=== PATIENT | male | born 1970 | race Caucasian/White ===

== ENCOUNTER 2024-06-28 17:47 | Emergency (ER) | payer BC ==
[~2024-06-28] VITALS: Ht 180.3 cm; Wt 131.5 kg
[2024-06-28 18:22] LABS: BASOPHILS ABSOLUTE AUTO 0.07 K/mm3 (0.00-0.23); BASOPHILS PERCENT AUTO 1 % (0-2); EOSINOPHILS ABSOLUTE AUTO 0.37 K/mm3 (0.00-0.68); EOSINOPHILS PERCENT AUTO 3 % (0-6); Hematocrit 44.5 % (37.0-53.0); Hemoglobin 15.4 g/dL (13.5-17.5); IMMATURE GRAN ABSOLUTE AUTO 0.06 K/mm3 (0.00-0.10); IMMATURE GRAN PERCENT AUTO 1 % (0-1); LYMPHOCYTES ABSOLUTE AUTO 2.03 K/mm3 (0.84-5.20); LYMPHOCYTES PERCENT AUTO 17 % (21-46); MONOCYTES ABSOLUTE AUTO 0.78 K/mm3 (0.16-1.47); MONOCYTES PERCENT AUTO 7 % (4-13); Mean Corpuscular HGB 30.6 pg (26.0-34.0); Mean Corpuscular HGB Conc 34.6 g/dL (31.5-36.5); Mean Corpuscular Volume 89 fL (80-100); Mean Platelet Volume 9.8 fL (9.1-12.4); NEUTROPHILS ABSOLUTE AUTO 8.58 K/mm3 (1.96-9.15); NEUTROPHILS PERCENT AUTO 72 % (41-73); Platelet Count 199 K/mm3 (150-400); RDW Coefficient Variation 12.7 % (11.7-14.2); RDW Standard Deviation 41.3 fL (35.1-46.3); Red Blood Cell Count 5.03 M/mm3 (4.30-5.90); White Blood Cell Count 11.89 K/mm3 (4.00-11.30)
[2024-06-28 18:36] LABS: Albumin, Blood 3.4 g/dL (3.4-5.0); Albumin/Globulin Ratio 0.8 (0.8-1.8); Bilirubin, Total 0.7 mg/dL (0.1-1.0); Bun/Creatinine Ratio 15.9 (12.0-20.0); Calcium, Blood 8.7 mg/dL (8.5-10.1); Creatinine, Blood 0.94 mg/dL (0.60-1.20); Globulin, Blood 4.2 g/dL (2.2-4.0); Total Protein, Blood 7.6 g/dL (6.4-8.2)
[2024-06-29] MEDS ORDERED: Prinivil10 MG PO (09:59)
[2024-06-29] MEDS ORDERED: TOPROL XL50 M1 PO (09:59)
[2024-06-29] MEDS ORDERED: GLIP5 PO (09:59)
[2024-06-29] MEDS ORDERED: Atarax10 MG PO (09:59)
[2024-06-29] MEDS ORDERED: METFORMIN HCL500 M3 PO (10:00)
[2024-06-29] MEDS ORDERED: SEMGLEE (Y100 UNIT/2 SQ (10:00)
[2024-06-29] MEDS ORDERED: Simvastatin20 MG PO (10:00)
[2024-06-29] MEDS ORDERED: DULO60 PO (10:05)
[2024-06-29] MEDS ORDERED: CHLO25A PO (10:05)
[2024-06-29] MEDS ORDERED: Lithium Carbon450 MG PO (10:06)
[2024-07-01] MEDS ORDERED: CHLO25A PO (13:41)
== END 2024-06-28 21:43 | disposition home or self-care (01) ==
LOC: ER 17:47
PROVIDERS: Student in an Organized Health Care Education/Training Program
DX: R07.9 Chest pain, unspecified (principal); I10 Essential (primary) hypertension; E11.9 Type 2 diabetes mellitus without complications; E78.5 Hyperlipidemia, unspecified; F17.210 Nicotine dependence, cigarettes, uncomplicated; Z79.899 Other long term (current) drug therapy; Z88.5 Allergy status to narcotic agent; Z91.018 Allergy to other foods; Z88.8 Allergy status to other drugs, medicaments and biological substances; Z59.89 Other problems related to housing and economic circumstances; Z59.82 Transportation insecurity
CPT/HCPCS: 71046; 80053; 83690; 84484; 85025; 85379; 93005; 93010; 99285-25

== ENCOUNTER 2024-06-29 09:16 | Observation (INO) | payer BC ==
[~2024-06-29] VITALS: Ht 180.3 cm; Wt 131.5 kg
[2024-06-29] MEDS ORDERED: CHLORPROMAZINE 25 MG/ML IM ONE (09:50)
[2024-06-29] MEDS ORDERED: GLIP5 PO (09:59)
[2024-06-29] MEDS ORDERED: TOPROL XL50 M1 PO (09:59)
[2024-06-29] MEDS ORDERED: Atarax10 MG PO (09:59)
[2024-06-29] MEDS ORDERED: Prinivil10 MG PO (09:59)
[2024-06-29] MEDS ORDERED: SEMGLEE (Y100 UNIT/2 SQ (10:00)
[2024-06-29] MEDS ORDERED: METFORMIN HCL500 M3 PO (10:00)
[2024-06-29] MEDS ORDERED: Simvastatin20 MG PO (10:00)
[2024-06-29] MEDS ORDERED: CHLO25A PO (10:05)
[2024-06-29] MEDS ORDERED: DULO60 PO (10:05)
[2024-06-29] MEDS ORDERED: Lithium Carbon450 MG PO (10:06)
[2024-06-29 10:43] LABS: BASOPHILS ABSOLUTE AUTO 0.06 K/mm3 (0.00-0.23); BASOPHILS PERCENT AUTO 1 % (0-2); EOSINOPHILS ABSOLUTE AUTO 0.36 K/mm3 (0.00-0.68); EOSINOPHILS PERCENT AUTO 4 % (0-6); Hematocrit 45.1 % (37.0-53.0); Hemoglobin 15.9 g/dL (13.5-17.5); IMMATURE GRAN ABSOLUTE AUTO 0.05 K/mm3 (0.00-0.10); IMMATURE GRAN PERCENT AUTO 1 % (0-1); LYMPHOCYTES PERCENT AUTO 16 % (21-46); MONOCYTES ABSOLUTE AUTO 0.69 K/mm3 (0.16-1.47); MONOCYTES PERCENT AUTO 7 % (4-13); Mean Corpuscular HGB 30.8 pg (26.0-34.0); Mean Corpuscular HGB Conc 35.3 g/dL (31.5-36.5); Mean Corpuscular Volume 87 fL (80-100); Mean Platelet Volume 9.8 fL (9.1-12.4); NEUTROPHILS ABSOLUTE AUTO 7.33 K/mm3 (1.96-9.15); NEUTROPHILS PERCENT AUTO 73 % (41-73); Platelet Count 203 K/mm3 (150-400); RDW Coefficient Variation 12.6 % (11.7-14.2); RDW Standard Deviation 39.8 fL (35.1-46.3); Red Blood Cell Count 5.17 M/mm3 (4.30-5.90); White Blood Cell Count 10.09 K/mm3 (4.00-11.30)
[2024-06-29 11:13] LABS: Ethanol (Alcohol), Blood, Med <3 mg/dL; Salicylate 3.1 mg/dL (2.8-20.0)
[2024-06-29 11:19] LABS: Alanine Aminotransfer (ALT/SGP 34 U/L (12-78); Albumin, Blood 3.4 g/dL (3.4-5.0); Albumin/Globulin Ratio 0.8 (0.8-1.8); Alk Phos 66 U/L (50-136); Anion Gap 10 mmol/L (3-11); Aspartate Aminotrans (AST/SGOT 20 U/L (12-37); Bilirubin, Total 0.7 mg/dL (0.1-1.0); Blood Urea Nitrogen 14 mg/dL (8-24); Bun/Creatinine Ratio 18.5 (12.0-20.0); CO2, Blood 24 mmol/L (21-32); Chloride, Blood 108 mmol/L (98-108); Creatinine, Blood 0.76 mg/dL (0.60-1.20); Globulin, Blood 4.3 g/dL (2.2-4.0); Glomerular Filtration Rate 109 (60-); Glucose, Blood 242 mg/dL (70-99); Potassium, Blood 3.9 mmol/L (3.5-5.5); Sodium, Blood 138 mmol/L (136-145); Total Protein, Blood 7.7 g/dL (6.4-8.2)
[2024-06-29 11:22] LABS: Acetaminophen, Random <2.0 ug/mL (10.0-30.0)
[2024-06-29 11:42] LABS: U Amphetamine Screen Not Detected; U Barbituate Screen Not Detected; U Benzodiazapine Screen Not Detected; U Buprenorphine Screen Not Detected; U Cannabinoids Screen Not Detected; U Cocaine Screen Not Detected; U Methadone Screen Not Detected; U Methamphetamine Screen Not Detected; U Opiates Screen Not Detected; U Oxycodone Screen Not Detected; U Phencyclidine Screen Not Detected
[2024-06-29 13:23] LABS: Influenza A, PCR NEGATIVE (NEGATIVE); Influenza B, PCR NEGATIVE (NEGATIVE); Resp Syncytial Virus, PCR NEGATIVE (NEGATIVE); SARS-Cov-2 (COVID-19) PCR, MMC NEGATIVE (NEGATIVE)
[2024-06-29 15:41] VITALS: BP 105/85
[2024-07-01] MEDS ORDERED: CHLO25A PO (13:41)
== END 2024-06-29 15:44 | disposition other institution (70) ==
LOC: ER 09:16 → EOR 09:17
PROVIDERS: ADMIT Student in an Organized Health Care Education/Training Program
DX: F25.1 Schizoaffective disorder, depressive type (principal); R45.851 Suicidal ideations; R45.850 Homicidal ideations; I10 Essential (primary) hypertension; E11.9 Type 2 diabetes mellitus without complications; G47.30 Sleep apnea, unspecified; G40.909 Epilepsy, unspecified, not intractable, without status epilepticus; F17.210 Nicotine dependence, cigarettes, uncomplicated; Z88.8 Allergy status to other drugs, medicaments and biological substances
CPT/HCPCS: 0241U; 51701; 80053; 80320; 85025; 93005; 93010; 99285-25; G0378; G0480; J3230

== ENCOUNTER 2024-06-29 12:27 | Inpatient (IN) | payer SELFPAY ==
[~2024-06-29] VITALS: Ht 180.3 cm; Wt 131.5 kg
[~2024-06-29 12:27] MED LIST: Atarax10 MG PO; CHLO25A PO; DULO60 PO; GLIP5 PO; Lithium Carbon450 MG PO; METFORMIN HCL500 M3 PO; Prinivil10 MG PO; SEMGLEE (Y100 UNIT/2 SQ; Simvastatin20 MG PO; TOPROL XL50 M1 PO
[2024-06-29 16:55] VITALS: BP 105/85
[2024-06-29] MEDS ORDERED: Aluminum Hydroxide 320MG/5ML 473 ML PO PRN (17:35)
[2024-06-29] MEDS ORDERED: FLU VACC TS2024-25(6MOS UP)/PF 45 MCG/0.5 ML SYRINGE IM ONE (17:35)
[2024-06-29] MEDS ORDERED: Acetaminophen 325 MG TABLET PO PRN (17:35)
[2024-06-29] MEDS ORDERED: Ibuprofen 600 MG Tab PO PRN (17:40)
[2024-06-29] MEDS ORDERED: Zolpidem Tartrate 5 MG Tab PO PRN (17:40)
--- NOTE | 2024-06-29 17:52 | NUR ---
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 Pt is A&O, calm, cooperative. Eye contact is good. 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 He has a mental healt diagnosis of schizophrenia and depression. Pt states that his normal mental health medications are chlorpromazine, duloxetene, and lithium. He said that he ran out of the chlorpromazine 06/25/24, ran out of lithium on 06/26/24, and ran out of duloxetene over a month ago. Pt reports that he has started hearing a voice telling him to harm himself. Pt states that he has no recent history of SI thought, but did attempt suicide by overdosing on his psych meds "2 years ago ." Pt denies current SI and HI. He states that his goal for this admission is to "get back on my meds." Patients medical Hx includes DM2, cirrosis of the liver, fatty liver disease, arthritis in spine and shoulders. Pt has Hx of bladder/kidney cancer and is incontinent of urine and wears briefs. Mold Runner stored pt's briefs behind the nurses station and gave several to patient to keep in his room. Pt was given a snack during the admission interview. He was oriented to the unit and shown to his room. Pt is on q15m checks for safety.
--- NOTE | 2024-06-30 06:02 | NUR ---
Patient spent the evening resting quietly in their bed. They were not roused for an assessment due to medication that they had been administered in the ED, which generally makes people very tired. They had no scheduled medication. Plan of care ongoing. They appeared to be resting quietly in their bed for 11 hours.
[2024-06-30 08:09] VITALS: BP 124/100
[2024-06-30] MEDS ORDERED: Multivitamins 1 Tab PO SCH (09:00)
[2024-06-30] MEDS ORDERED: Thiamine HCl 100 MG Tab PO SCH (09:00)
[2024-06-30] MEDS ORDERED: Folic Acid 1 MG TAB PO SCH (09:00)
[2024-06-30] MEDS ORDERED: HyDROXyzine HCl 10 MG Tab PO PRN (10:15)
[2024-06-30] MEDS ORDERED: Metoprolol Succinate 50 MG TABCR PO SCH (10:40)
[2024-06-30] MEDS ORDERED: TROLAMINE SALICYLATE 10% CREAM 141 GM TUBE TOP PRN ×2 (12:50→17:30)
[2024-06-30] MEDS ORDERED: Insulin Human Lispro 100 Units/ML 3ML Syringe SC SCH (16:30)
[2024-06-30] MEDS ORDERED: MetFORMIN HCl 500 mg PO SCH (17:00)
[2024-06-30] MEDS ORDERED: GlipiZIDE 5 MG Tab PO SCH (17:00)
--- NOTE | 2024-06-30 17:29 | NUR ---
SHIFT SUMMARY PT AA&OX4. PT HAS BEEN DROWSY AND SLEPT MOST OF THE SHIFT. HE WAS UP FOR MEALS AND DOCTORS. HOSPITALIST CONSULTED FOR BP AND DM MEDICATION MANAGEMENT. PLEASE SEE EMAR. PT DECLINED LAB DRAW. L GREAT TOE DM WOUND CLEANSED WITH NS THEN COVERED WITH BAND AID. PT EDUCATED ON THE IMPORTANCE OF GLUCOSE CONTROL AND FOLLOW UP CARE FOR WOUND. HE VERBALIZED UNDERSTANDING. SPEECH SLOW, EYE CONTACT APPROPRIATE. MOOD IS "TIRED" AFFECT CONGRUENT. DENIES SI VH. ENDORSES AH. WILL CONTINUE POC.
[2024-06-30 20:33] VITALS: BP 110/95
[2024-06-30] MEDS ORDERED: Lithium Carbonate 450 MG TabCR PO SCH ×2 (21:00)
[2024-06-30] MEDS ORDERED: CHLORPROMAZINE HCL 25 MG PO SCH ×2 (21:00)
--- NOTE | 2024-07-01 06:09 | NUR ---
Patient spent most of the evening resting in their bed. They were cooperative with assessment. They took their medication without issue. They denied any symptoms at this time but were noted to be talking with no one else nearby. They denied new concerns at this time. They are able to make their needs known. Plan of care ongoing. They appeared to be sleeping quietly for 9 hours.
[2024-07-01] MEDS ORDERED: Lisinopril 10 MG Tab PO SCH (09:00)
[2024-07-01] MEDS ORDERED: Atorvastatin 40 MG Tab PO SCH (09:00)
[2024-07-01 09:38] VITALS: BP 138/80
[2024-07-01] MEDS ORDERED: ATOR40TA PO (13:36)
[2024-07-01] MEDS ORDERED: CHLO25A PO ×2 (13:39→13:41)
--- NOTE | 2024-07-01 14:43 | NUR ---
NAUTICAL INSTRUMENT MECHANIC NOTE Pt A&O, calm, cooperative, eye contact is good. Pt denies SI, HI, and all hallucinations. Pt was provided education on DM2, medications, and diagnosis. 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 Prescriptions have been faxed to [facility] pharmacy. Pt will take a taxi to [facility] in [place], with a stop at the pharmacy to picking machine operator helper his medications. Taxi is scheduled to arrive at 1500.
--- NOTE | 2024-07-01 15:01 | NUR ---
pt escorted of unit at 1500
== END 2024-07-01 15:00 | disposition home or self-care (01) | DRG 885 ==
LOC: BHU 12:27
PROVIDERS: ADMIT Student in an Organized Health Care Education/Training Program
DX: F25.1 Schizoaffective disorder, depressive type (principal); E11.9 Type 2 diabetes mellitus without complications; I10 Essential (primary) hypertension; E78.5 Hyperlipidemia, unspecified; G47.33 Obstructive sleep apnea (adult) (pediatric); G40.909 Epilepsy, unspecified, not intractable, without status epilepticus; M19.90 Unspecified osteoarthritis, unspecified site; K74.60 Unspecified cirrhosis of liver; F17.210 Nicotine dependence, cigarettes, uncomplicated; Z79.4 Long term (current) use of insulin; Z79.84 Long term (current) use of oral hypoglycemic drugs; Z85.51 Personal history of malignant neoplasm of bladder; Z85.528 Personal history of other malignant neoplasm of kidney; Z88.8 Allergy status to other drugs, medicaments and biological substances; Z91.018 Allergy to other foods
CPT/HCPCS: 82947; A9270